=== PATIENT | female | born 1960 | race Caucasian/White ===

== ENCOUNTER 2020-05-30 05:35 | Inpatient (IN) ==
[2020-05-11 11:50] LABS: Basophils # 0.1 10*3/uL (0.0-0.2); Basophils % 1.3 % (0.0-0.8); Eosinophils # 0.4 10*3/uL (0.0-0.87); Eosinophils % 6.8 % (0.00-10.9); Hematocrit 41.7 VOL% (35.7-47.0); Hemoglobin 13.8 GM/DL (12.0-16.0); Immature Granulocytes % 0.5 %; Immature Granulocytes Absolute 0.03 #; Lymphocytes % 32.1 % (21.3-54.2); Mean Corpuscular HGB Conc 33.1 GM/DL (32-36); Mean Corpuscular Volume 93.3 FL (87-102); Mean Platelet Volume 9.7 FL (9.6-12.0); Monocytes % 7.1 % (1.7-12.7); Neutrophils % 52.2 % (38.7-73.9); Platelet Count 342 T/CUMM (130-400); Red Blood Count 4.47 MC/CUMM (3.8-5.5); Red Cell Distribution Width 11.8 % (9.3-17.3); White Blood Count 6.3 T/CUMM (4-12)
[2020-05-11 12:10] LABS: PT Patient Result 10.3 SECS (9.8-11.9); Partial Thromboplastin Time 28.8 SECS (23.9-33.8)
[2020-05-11 12:11] LABS: Calcium 8.9 MG/DL (8.5-10.1); Osmolality,Calculated 279.3 MOS/KG (273-304)
[2020-05-11 12:31] LABS: Bilirubin,Urine Negative (Negative); Blood, Urine Small mg/dL (Negative); Glucose,Urine (UA) Negative (Negative); Ketones,Urine Negative (Negative); Mucus,Urine Occasional /LPF (Occasional); Nitrite,Urine Negative (Negative); Protein,Urine Negative; RBC,Urine 2 /HPF (0-4); Squamous Epithelial Cell,Urine Occasional /HPF (0-10); Urine Appearance CLOUDY (Clear); Urine Color Amber (Yellow); Urine Specific Gravity 1.021 (1.001-1.035); Urine Urobilinogen < 2.0 EU/DL (0.2-1.0)
[2020-05-11 14:10] LABS: Bacteria,Urine Occasional /HPF (Few)
[2020-05-30] MEDS ORDERED: SCOPOLAMINE 1.5 MG PATCH TRANSDERM ONE (06:58)
[2020-05-30] MEDS ORDERED: DIAZEPAM 5 MG TABLET PO ONE (06:58)
[2020-05-30] MEDS ORDERED: LACTATED RINGERS 1,000 ML IV SCH ×2 (07:30→11:30)
[2020-05-30] MEDS ORDERED: ceFAZolin 1,000 MG VIAL ONE (07:43)
[2020-05-30] MEDS ORDERED: DEXMEDETOMIDINE 200 MCG/2 ML VIAL ONE (09:09)
[2020-05-30] MEDS ORDERED: propofoL 200 MG/20 ML VIAL IV ONE (09:09)
[2020-05-30] MEDS ORDERED: LIDOCAINE 2% 5 ML VIAL ONE (09:09)
[2020-05-30] MEDS ORDERED: ROCURONIUM 50 MG/5 ML VIAL IV ONE (09:09)
[2020-05-30] MEDS ORDERED: ETOMIDATE 40 MG/20 ML VIAL IV ONE (09:09)
[2020-05-30] MEDS ORDERED: fentaNYL 100 MCG/2 ML VIAL ONE ×2 (09:10→10:57)
[2020-05-30] MEDS ORDERED: BUPIVACAINE MPF 0.25% 30 ML VIAL ONE (09:21)
[2020-05-30] MEDS ORDERED: DEXAMETHASONE 4 MG/1 ML VIAL ONE ×2 (09:21→10:16)
[2020-05-30] MEDS ORDERED: ePHEDrine 50 MG/ML VIAL ONE (10:00)
[2020-05-30] MEDS ORDERED: ONDANSETRON 4 MG/2 ML VIAL ONE (10:16)
[2020-05-30] MEDS ORDERED: SUGAMMADEX 200 MG/2 ML VIAL IV ONE (10:34)
[2020-05-30] MEDS ORDERED: ACETAMINOPHEN 1,000 MG/100 ML VIAL IV ONE (10:35)
[2020-05-30] MEDS ORDERED: BISACODYL 10 MG SUPP RECTAL PRN (11:05)
[2020-05-30] MEDS ORDERED: ONDANSETRON 4 MG/2 ML VIAL IV PRN (11:05)
[2020-05-30] MEDS ORDERED: ACETAMINOPHEN 325 MG TABLET PO PRN (11:05)
[2020-05-30] MEDS ORDERED: MAGNESIUM HYDROXIDE SUSP 30 ML UDCUP PO PRN (11:05)
[2020-05-30] MEDS ORDERED: BENZOCAINE/MENTHOL LOZENGE 18/BOX PO PRN (11:05)
[2020-05-30] MEDS ORDERED: SEVOFLURANE 1 UNIT/15 MINUTE INH ONE (11:14)
[2020-05-30 11:16] LABS: Bilirubin,Urine Negative (Negative); Blood, Urine Negative (Negative); Glucose,Urine (UA) Negative (Negative); Ketones,Urine 20 mg/dL (Negative); Mucus,Urine Occasional /LPF (Occasional); Nitrite,Urine Negative (Negative); Protein,Urine Negative; RBC,Urine 1 /HPF (0-4); Squamous Epithelial Cell,Urine Occasional /HPF (0-10); Urine Appearance CLEAR (Clear); Urine Color Yellow (Yellow); Urine Specific Gravity 1.015 (1.001-1.035); Urine Urobilinogen < 2.0 EU/DL (0.2-1.0)
[2020-05-30] MEDS ORDERED: HYDROmorphone 2 MG/1 ML VIAL ONE (11:37)
[2020-05-30] MEDS: HYDROmorphone 2 MG/1 ML VIAL IV PRN ×4 (11:38→12:00)
[2020-05-30] MEDS ORDERED: INFLUENZA VIRUS VACCINE 0.5 ML SYRINGE IM ONE (12:39)
[2020-05-30] MEDS: KETOROLAC 30 MG/1 ML VIAL IV PRN ×2 (14:07→20:02)
[2020-05-30] MEDS ORDERED: oxyCODONE/ACETAMINOPHEN 5-325 MG TABLET ONE (16:59)
[2020-05-30] MEDS: oxyCODONE/ACETAMINOPHEN 5-325 MG TABLET PO PRN (17:03)
[2020-05-30] MEDS: ceFAZolin 1,000 MG in SYRINGE 1 EACH IV SCH (17:58)
[2020-05-31] MEDS: ceFAZolin 1,000 MG in SYRINGE 1 EACH IV SCH ×2 (01:24→01:30)
[2020-05-31] MEDS: KETOROLAC 30 MG/1 ML VIAL IV PRN ×2 (01:43→08:56)
[2020-05-31 06:08] LABS: Basophils # 0.1 10*3/uL (0.0-0.2); Basophils % 0.4 % (0.0-0.8); Eosinophils # 0.1 10*3/uL (0.0-0.87); Eosinophils % 0.4 % (0.00-10.9); Hematocrit 37.7 VOL% (35.7-47.0); Hemoglobin 12.1 GM/DL (12.0-16.0); Immature Granulocytes % 0.3 %; Immature Granulocytes Absolute 0.04 #; Lymphocytes # 2.2 10*3/uL (1.4-4.0); Lymphocytes % 17.9 % (21.3-54.2); Mean Corpuscular HGB Conc 32.1 GM/DL (32-36); Mean Corpuscular Volume 95.4 FL (87-102); Mean Platelet Volume 9.8 FL (9.6-12.0); Monocytes % 7.8 % (1.7-12.7); Neutrophils % 73.2 % (38.7-73.9); Platelet Count 317 T/CUMM (130-400); Red Blood Count 3.95 MC/CUMM (3.8-5.5); Red Cell Distribution Width 11.4 % (9.3-17.3); White Blood Count 12.2 T/CUMM (4-12)
[2020-05-31] MEDS: SIMETHICONE CHEW 80 MG TABLET PO PRN ×2 (06:46→16:01)
[2020-05-31] MEDS: DOCUSATE SODIUM 100 MG CAPSULE PO PRN ×2 (08:56→21:11)
[2020-05-31] MEDS ORDERED: METOCLOPRAMIDE 10 MG TABLET PO SCH (16:00)
[2020-05-31] MEDS: oxyCODONE/ACETAMINOPHEN 5-325 MG TABLET PO PRN ×2 (16:01→23:30)
[2020-05-31] MEDS: IBUPROFEN 800 MG TABLET PO PRN ×2 (16:01→23:29)
[2020-06-01 08:25] VITALS: BP 100/53
[2020-06-01] MEDS: DOCUSATE SODIUM 100 MG CAPSULE PO PRN (08:39)
== END 2020-06-01 10:00 | disposition home or self-care (01) | DRG 358 ==
LOC: N.OR 05:35 → N.SDSINP 05:36 → N.OB 12:19
PROVIDERS: ADMIT Specialist; ATTEND Specialist